=== PATIENT | male | born 1975 | race African-American/Black ===

== ENCOUNTER 2020-10-15 18:31 | Emergency (ER) | payer SELFPAY ==
[~2020-10-15] VITALS: Ht 182.9 cm; Wt 77.2 kg
[2020-10-15 18:40] VITALS: BP 132/89
[2020-10-15] MEDS ORDERED: NEOM15OI TP (19:23)
[2020-10-15] MEDS ORDERED: CEPH-264 PO (19:23)
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
== END 2020-10-15 19:35 | disposition home or self-care (01) ==
LOC: ER 18:31
DX: S81.802A Unspecified open wound, left lower leg, initial encounter (principal); F17.200 Nicotine dependence, unspecified, uncomplicated; X58.XXXA Exposure to other specified factors, initial encounter; Y93.89 Activity, other specified; Y92.89 Other specified places as the place of occurrence of the external cause; Y99.8 Other external cause status
CPT/HCPCS: 99283

== ENCOUNTER 2020-10-26 09:29 | Emergency (ER) | payer SELFPAY ==
[~2020-10-26] VITALS: Ht 182.9 cm; Wt 75.0 kg
[~2020-10-26 09:29] MED LIST: CEPH-264 PO; NEOM15OI TP
[2020-10-26 09:37] VITALS: BP 144/96
[2020-10-26] MEDS ORDERED: CLOT15CR5 TP (10:05)
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
== END 2020-10-26 10:19 | disposition home or self-care (01) ==
LOC: ER 09:29
DX: R21 Rash and other nonspecific skin eruption (principal); F17.200 Nicotine dependence, unspecified, uncomplicated; Z88.1 Allergy status to other antibiotic agents
CPT/HCPCS: 99283

== ENCOUNTER 2021-10-30 03:52 | Emergency (ER) | payer OTHER ==
[~2021-10-30] VITALS: Ht 208.3 cm; Wt 77.2 kg
[~2021-10-30 03:52] MED LIST changes: +CLOT15CR5 TP; +DIPH25CA23 PO; +HYDR-2761 PO; +HYDR25TA PO; +LACT1CAP19 PO; +LEVO500T9 PO; +VALA500T9 PO
[2021-10-30] MEDS ORDERED: CETIRIZINE HCL 10 MG TABLET. PO ONE (05:00)
[2021-10-30] MEDS ORDERED: methylPREDNISolone SOD SUCC PF 125 MG/2 ML VIAL. IV ONE (05:00)
[2021-10-30] MEDS ORDERED: CLINDAMYCIN HCL 150 MG CAPSULE. PO ONE (05:00)
[2021-10-30] MEDS ORDERED: FAMOTIDINE 20 MG TABLET. PO ONE (05:00)
[2021-10-30 05:18] LABS: BASO # 0.1 x10^3/uL (0.0-0.2); BASO % 1 % (0-3); EOS # 0.3 x10^3/uL (0.0-0.7); EOS % 5 % (0-3); HEMOGLOBIN 15.3 g/dL (13.0-17.5); LYMPH % 29 % (24-48); MEAN CORPUSCULAR HEMOGLOBIN 32 pg (25-35); MEAN CORPUSCULAR HGB CONC 33 g/dL (31-37); MEAN CORPUSCULAR VOLUME 96 fL (79-100); MONO # 0.5 x10^3/uL (0.0-1.1); MONO % 7 % (0-9); NEUT # 3.9 x10^3/uL (1.8-7.7); NEUT % 58 % (31-73); PLATELET COUNT 271 x10^3/uL (140-400); WHITE BLOOD COUNT 6.8 x10^3/uL (4.0-11.0)
[2021-10-30] MEDS ORDERED: LIDO:MAALOX 1:1 20 ML SINGLE DOSE. SWSW ONE (05:30)
[2021-10-30 05:36] LABS: CALCIUM 8.4 mg/dL (8.5-10.1); GFR 97.8; POTASSIUM 4.1 mmol/L (3.5-5.1)
[2021-10-30 05:42] LABS: ALBUMIN 3.7 g/dL (3.4-5.0); ALBUMIN/GLOBULIN RATIO 1.1 (1.0-1.7); C-REACTIVE PROTEIN 5.5 mg/L (0-3.3); TOTAL BILIRUBIN 0.6 mg/dL (0.2-1.0); TOTAL PROTEIN 7.1 g/dL (6.4-8.2)
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
[2021-10-30 06:42] VITALS: BP 128/86
[2021-10-30] MEDS ORDERED: PRED50TA PO (08:24)
[2021-10-30] MEDS ORDERED: CLIN-94 PO (08:24)
== END 2021-10-30 08:45 | disposition home or self-care (01) ==
LOC: ER 03:52
DX: T78.40XA Allergy, unspecified, initial encounter (principal); N48.89 Other specified disorders of penis; F17.200 Nicotine dependence, unspecified, uncomplicated
CPT/HCPCS: 36415; 80053; 85025; 85651; 86140; 96374; 99284; J2930